=== PATIENT | male | born 2000 | race Caucasian/White ===

== ENCOUNTER 2023-08-10 19:16 | Emergency (ER) | payer SELFPAY ==
[2023-08-10 19:57] VITALS: RESP 18; TEMP 99; O2SAT 99
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
[2023-08-10 20:48] VITALS: BP 139/92; PULSE 98
== END 2023-08-10 20:45 | disposition home or self-care (01) ==
LOC: ED 19:16
DX: Z04.1 Encounter for examination and observation following transport accident (principal); S13.4XXA Sprain of ligaments of cervical spine, initial encounter; S60.011A Contusion of right thumb without damage to nail, initial encounter; V57.5XXA Driver of pick-up truck or van injured in collision with fixed or stationary object in traffic accident, initial encounter; R42 Dizziness and giddiness; M25.561 Pain in right knee; M25.562 Pain in left knee; Z28.310 Unvaccinated for COVID-19
CPT/HCPCS: 99285